=== PATIENT | male | born 1980 | race Caucasian/White ===

== ENCOUNTER 2018-10-04 10:17 | Day surgery (SDC) | payer OTHER ==
--- NOTE | 2018-10-03 21:00 | History and Physical Report ---
DATE OF ADMISSION: 10/04/2018 CHIEF COMPLAINT: Testicular mass. HISTORY OF PRESENT ILLNESS: This is a 38-year-old white male, who is admitted to the hospital for left varicocelectomy. The patient was found to have pain in the scrotal area and ultrasound showed right epididymal cyst 1 cm and left moderate varicocele. The patient had recent sperm analysis, which showed high viscosity, low sperm count, and abnormal . PAST MEDICAL/SURGICAL HISTORY: The patient has surgical history of right elbow surgery and tonsillectomy. On medical side, he has a history of lumps. MEDICATIONS: Currently, he is not taking any medications. ALLERGIES: The patient is allergic to sulfa.. SOCIAL HISTORY: He is having no children at the present time and single. FAMILY HISTORY: Father in a car accident and mother is healthy. PHYSICAL EXAMINATION: GENERAL: He is well developed and well nourished, in no acute distress. HEAD AND NECK: Negative. CHEST: Normal. Clear breathing sounds. ABDOMEN: Soft. No organomegaly. No tenderness or mass. EXTERNAL GENITALIA: Revealed circumcised phallus. Descended normal testes. Right side, a small epididymal cyst on the epididymis, nontender. On the left side, the patient has moderate varicocele. Testis is normal. EXTREMITIES: Negative. IMPRESSION: Left varicocele. PLAN: Left varicocelectomy. Issa Villalobos M.D. DR: FUAD JOB#: [id number] CC:
[~2018-10-04] VITALS: Ht 177.8 cm; Wt 74.8 kg
[2018-10-04] VITALS (10 sets, daily range): BP systolic 109–132; BP diastolic 70–83
[~2018-10-04 10:17] MED LIST: Bupivacaine 0.25% Inj 30ml INJ ONE; NKM
[2018-10-04] MEDS ORDERED: Midazolam 2mg/2ml Inj ONE (11:42)
[2018-10-04] MEDS ORDERED: Neostigmine 1mg/ml 10ml Inj ONE (11:43)
[2018-10-04] MEDS ORDERED: Glycopyrrolate 0.2mg/ml 1ml Vial ONE (11:43)
[2018-10-04] MEDS ORDERED: fentaNYL 100 mcg/2 mL IV ONE (11:43)
[2018-10-04] MEDS ORDERED: Morphine Sulfate 2mg/ml Inj(IV/IM USE ONLY) ONE (11:43)
[2018-10-04] MEDS ORDERED: Zemuron 50mg/5ml Inj IV ONE (11:44)
[2018-10-04] MEDS ORDERED: Morphine Sulfate 4mg/ml Inj (IV USE ONLY) ONE (11:45)
--- NOTE | 2018-10-04 11:53 | Pre-Procedure Note/Attestation ---
Pre-Procedure Note/Attestation Complete Prior to Procedure Planned Procedure: left Procedure Narrative: Varicocelectomy Indications for Procedure Pre-Operative Diagnosis: Left Varicocele Attestation I attest that I discussed the nature of the procedure; its benefits; risks and complications; and alternatives (and the risks and benefits of such alternatives ), prior to the procedure, with the patient (or the patient's legal service support representative). I attest that, if there was a reasonable possibility of needing a blood transfusion, the patient (or the patient's legal service support representative) was given the [facility] standardized written summary, pursuant to the William Buna Blood Safety Act ([place] Health and Safety Code # 1645, as amended). I attest that I re-evaluated the patient just prior to the surgery and that there has been no change in the patient's H&P, except as documented below: Issa Villalobos MD Oct 04, 2018 11:53
[2018-10-04] MEDS ORDERED: Propofol 200mg/20ml IV ONE (11:56)
[2018-10-04] MEDS ORDERED: LR 1000ml ONE (12:00)
[2018-10-04] MEDS ORDERED: Dexamethasone 4mg/ml vial ONE (12:00)
[2018-10-04] MEDS ORDERED: Ketorolac 30mg Inj ONE (12:00)
[2018-10-04] MEDS ORDERED: NS Irrig 1000ml ONE (12:00)
[2018-10-04] MEDS ORDERED: Sterile Water Irrig 1000ml IRRIG ONE (12:00)
[2018-10-04] MEDS ORDERED: Bupivacaine 0.5% Inj 30 ml vial INJ ONE (12:12)
--- NOTE | 2018-10-04 12:29 | Anethesia Preoperative Eval ---
Anesthesia Pre-op PMH/ROS General Date of Evaluation: Oct 04, 2018 Time of Evaluation: 11:39 Anesthesiologist: Lanny Pearson CRNA ASA Score: ASA 1 Mallampati Score Class I : Soft palate, uvula, fauces, pillars visible Class II: Soft palate, uvula, fauces visible Class III: Soft palate, base of uvula visible Class IV: Only hard plate visible Mallampati Classification: Class II Surgeon: Griselda Diagnosis: LEFT varicocele Surgical Procedure: LEFT varicoceletomy Anesthesia History: none Family History: no anesthesia problems Allergies: Coded Allergies: No Known Allergies (Unverified , 10/03/18) Medications: see eMAR Patient NPO?: Yes NPO Date: Oct 04, 2018 NPO Time: 00:00 Past Medical History Cardiovascular: Denies: HTN, CAD, MA, valve dz, arrhythmia, other Pulmonary: Denies: asthma, COPD, FABRIZIO, other Gastrointestinal/Genitourinary: Reports: other - LEFT varicocele; Denies: GERD, CRI, ESRD Neurologic/Psychiatric: Denies: dementia, CVA, depression/anxiety, TIA, other Endocrine: Denies: DM, hypothyroidism, steroids, other HEENT: Denies: cataract (L), cataract (R), glaucoma, YOMBA SHOSHONE (L), YOMBA SHOSHONE (R), other Hematology/Immune: Denies: anemia, DVT, bleeding disorder, other Musculoskeletal/Integumentary: Denies: OA, RA, DJD, DDD, edema, other PMH Narrative: as noted above PSxH Narrative: RIGHT elbow, LEFT thumb, tonsillectomy Anesthesia Pre-op Phys. Exam Physician Exam Last Vital Signs Date Time Temp Pulse Resp B/P (MAP) Pulse Ox O2 Delivery O2 Flow Rate FiO2 10/04/18 11:13 Room Air 10/04/18 11:00 97.8 57 18 109/73 99 Constitutional: NAD Neurologic: CN 2-12 intact Cardiovascular: RRR Respiratory: CTA Gastrointestinal: S/NT/ND Airway Exam Mallampati Score: Class II MO: full Neck: FROM TMD: > 3 FB ROM: full Teeth: intact Dentures: no upper, no lower Anesthesia Pre-op A/P Risk Assessment & Plan Assessment: ASA 1, ok to proceed Plan: GA Status Change Before Surgery: No Pre-Antibiotics Drug: Lanny Cornell CRNA Oct 04, 2018 12:29
[2018-10-04] MEDS ORDERED: Metoclopramide 10mg/2ml Inj IVP PRN (12:30)
[2018-10-04] MEDS ORDERED: Hydromorphone 0.5mg/0.5ml inj IVP PRN (12:30)
--- NOTE | 2018-10-04 13:54 | Immediate Post-Op Evaluation ---
Immediate Post-Op Evalulation Immediate Post-Op Evalulation Procedure: LEFT hydrocelectomy Date of Evaluation: Oct 04, 2018 Time of Evaluation: 13:31 IV Fluids: LR 1200 ml Estimated Blood Loss: 10 Blood Pressure Systolic: 125 Blood Pressure Diastolic: 75 Pulse Rate: 59 Respiratory Rate: 20 O2 Sat by Pulse Oximetry: 100 Temperature (Fahrenheit): 97.9 Pain Score (1-10): 2 Nausea: No Vomiting: No Complications none Patient Status: awake, reacts, patent, extubated Hydration Status: adequate Drug: cefazolin 2 gm IV Given Within 1 Hr of Incision: Yes Time Given: 12:10 Lanny Pearson CRNA Oct 04, 2018 13:54
--- NOTE | 2018-10-04 13:54 | Brief Operative Note ---
Immediate Post Operative Note Operative Note Pre-op Diagnosis: Left Varicocele Procedure: Left Varicoceiectomy Post-op Diagnosis: same Post-op Diagnosis: same as pre-op Surgeon: Eri Villalobos MD Anesthesia: general Specimen: yes Complications: none Condition: stable Fluids: none Estimated Blood Loss: minimal Drains: none Implant(s) used?: No Issa Villalobos MD Oct 04, 2018 13:54
--- NOTE | 2018-10-04 13:55 | 48 Hour Post Anesthesia Eval ---
Post Anesthesia Evaluation Procedure: LEFT hydrocelectomy Date of Evaluation: Oct 04, 2018 Time of Evaluation: 13:54 Blood Pressure Systolic: 135 0: 76 Pulse Rate: 60 Respiratory Rate: 16 Temperature (Fahrenheit): 97.9 O2 Sat by Pulse Oximetry: 100 Airway: patent Nausea: No Vomiting: No Pain Intensity: 0 Hydration Status: adequate Cardiopulmonary Status: stable Mental Status/LOC: patient returned to baseline Follow-up Care/Observations: per surgeon Post-Anesthesia Complications: none Follow-up care needed: N/A Lanny Pearson CRNA Oct 04, 2018 13:55
[2018-10-04] MEDS ORDERED: Meperidine 50mg/ml Inj(FOR RIGORS ONLY) IM ONE (14:00)
[2018-10-04] MEDS ORDERED: HYDROmorphone 1mg/ml Carpuject SUBQ PRN (14:00)
[2018-10-04] MEDS ORDERED: HYDROcodone/Acetamin 5/325 tab ORAL PRN (20:17)
[2018-10-04] MEDS ORDERED: D5 1/2NS 1,000 ML IV SCH (20:17)
[2018-10-04] MEDS ORDERED: Tylenol #3 tab (300mg/30mg) ORAL PRN (20:18)
--- NOTE | 2018-10-05 00:15 | Operative Note - Dictated ---
DATE OF OPERATION: 10/04/2018 PROCEDURE: Left varicocelectomy. PREOPERATIVE DIAGNOSIS: Left varicocele. POSTOPERATIVE DIAGNOSIS: Left varicocele. ANESTHESIA: General. SURGEON: Issa Villalobos M.D. BLOOD LOSS: Minimal. JUSTIFICATION: This is a 38-year-old white male with a left varicocele. PROCEDURE AND FINDINGS: The patient was placed in supine position. He was prepped and draped in usual fashion. A McBurney incision was made in the left superior to inguinal area and after cutting through the skin, subcutaneous tissue, and Alisia's fascia, the external oblique muscle was identified and split in the middle. Prior to that, the fascia was incised and opened and then the retroperitoneal area was approached and the cord was identified. Then the cord was isolated very carefully from the varicocele sac and then the varicocele was transected and tied with 0 silk. Then about 1 mL of Marcaine 0.5% plain was injected at the stump of the varicole on both sides. After careful hemostasis, the fascia was closed by 0 Vicryl in a running fashion and few interrupted stitches and subcutaneous tissue was approximated by interrupted 4-0 chromic in two layers and the skin was closed by 4-0 Prolene subcuticular. About 10 to 15 mL of Marcaine plain 0.5% was injected into the fascia and subcutaneous area. Then Steri-Strips were applied and dressing. The patient tolerated the procedure well and remained stable throughout the procedure and received 1 gram of Ancef intraoperatively. Issa Villalobos M.D. DR: Cameron JOB#: [id number] CC:
== END 2018-10-04 15:20 | disposition home or self-care (01) ==
LOC: SUR 10:17
DX: I86.1 Scrotal varices (principal); Z88.2 Allergy status to sulfonamides; N50.3 Cyst of epididymis
CPT/HCPCS: 55535; J2250; J2270; J2704; J3010; J3490; 94003; 94150; J2405; J2710

== ENCOUNTER → 2020-03-10 | Day surgery (SDC) | payer BC ==
--- NOTE | 2020-03-09 19:45 | History and Physical Report ---
DATE OF ADMISSION: 03/10/2020 Age 39, white male. CHIEF COMPLAINT: Left testicular mass. PRESENT ILLNESS: This is a 39-year-old white male admitted to the hospital for left hydrocelectomy. The patient had left varicocelectomy in this hospital about a year and a half ago for severe varicocele and abnormal sperm count. The patient afterwards developed gradual swelling of the left scrotum and was diagnosed as hydrocele, which is progressive in nature and beginning to cause pain and discomfort for him. He is admitted to the hospital today for left hydrocelectomy. PAST HISTORY: He has surgical history of right elbow surgery, left varicocelectomy, tonsillectomy, and on the medical side he has never been seriously sick. He is , no children. FAMILY HISTORY: Not remarkable. ALLERGIES: He is allergic to sulfa. MEDICATIONS: Currently, he is not taking any medication. PHYSICAL EXAMINATION: GENERAL: He is well developed, well nourished, in no acute distress. HEAD AND NECK: Negative. CHEST: Normal, clear breathing sounds. HEART: Normal rhythm and sound. ABDOMEN: Soft. No organomegaly, tenderness, or mass. EXTERNAL GENITALIA: Circumcised phallus. Descended normal testicle on the right side. On the left side, the patient has a big hydrocele transilluminated and the testicle cannot be palpated. RECTAL: Negative. EXTREMITIES: Negative. IMPRESSION: Left hydrocele. PLAN: Left hydrocelectomy. Issa Villalobos M.D. DR: TAINA JOB#: [id number] CC: INESSA
[2020-03-10] VITALS (9 sets, daily range): BP systolic 113–127; BP diastolic 72–83
[~2020-03-10] VITALS: Ht 172.7 cm; Wt 72.6 kg
[~2020-03-10] MED LIST changes: +Acetaminophen (Non formulary) 100 ML IV ONE; +Atropine Sulfate 0.4mg/ml inj IVP PRN; -Bupivacaine 0.25% Inj 30ml INJ ONE; +Bupivacaine 0.5% Inj 30 ml vial INJ ONE; +D5 1/2NS 1,000 ML IV SCH; +DiphenhydrAMINE 50mg/ml Inj IVP PRN; +HYDROcodone/Acetamin 5/325 tab ORAL PRN; +HYDROcodone/Acetamin 7.5/325 tab ORAL PRN; +HYDROmorphone 1mg/ml Carpuject SUBQ PRN; +Hydromorphone 0.5mg/0.5ml inj IVP PRN; +Ketorolac 30mg Inj IV PRN; +LORazepam Inj 2mg/ml 1ml IV PRN; +LR 1000ml 1,000 ML IVLG SCH; +LR 1000ml ONE; +Labetalol 5mg/ml 20ml vial IV PRN; +Lidocaine 1% MPF 10mg/ml 5ml ONE; +Meperidine 25mg/0.5ml Inj (FOR RIGORS ONLY) IV PRN; +Metoclopramide 10mg/2ml Inj IVP PRN; +Metoprolol Tartrate 5mg/5ml Inj ONE; +Midazolam 2mg/2ml Inj IVP PRN; +NS Irrig 1000ml IRRIG ONE; +Sodium Chloride 10ml vial INJ ONE; +Sterile Water Irrig 1000ml IRRIG ONE; +Tylenol #3 tab (300mg/30mg) ORAL PRN; +fentaNYL 100 mcg/2 mL IV ONE; +fentaNYL 100 mcg/2 mL IV PRN; +oxyCODONE HCL/Acetaminophen 5/325mg ORAL PRN
--- NOTE | 2020-03-10 12:30 | Anethesia Preoperative Eval ---
Anesthesia Pre-op PMH/ROS General Date of Evaluation: Mar 10, 2020 Time of Evaluation: 12:36 Anesthesiologist: Andrew ASA Score: ASA 1 Mallampati Score Class I : Soft palate, uvula, fauces, pillars visible Class II: Soft palate, uvula, fauces visible Class III: Soft palate, base of uvula visible Class IV: Only hard plate visible Mallampati Classification: Class II Surgeon: Griselda Diagnosis: L Hydrocele Surgical Procedure: L Hydrocelectomy Anesthesia History: none Family History: no anesthesia problems Allergies: Coded Allergies: Cultivated Oat Pollen (Verified Allergy, Intermediate, sneezing; watery eyes; runny nose, 03/10/20) Medications: see eMAR Patient NPO?: Yes Anesthesia Pre-op Phys. Exam Physician Exam Last Vital Signs Date Time Temp Pulse Resp B/P (MAP) Pulse Ox O2 Delivery O2 Flow Rate FiO2 03/10/20 12:16 98.1 71 20 116/77 96 Room Air Constitutional: NAD Neurologic: CN 2-12 intact Cardiovascular: RRR Respiratory: CTA Gastrointestinal: S/NT/ND Airway Exam Mallampati Score: Class II MO: full ROM: full Teeth: intact Anesthesia Pre-op A/P Risk Assessment & Plan Assessment: ASA 1 Plan: GA, SED, GlideScope Status Change Before Surgery: No Pre-Antibiotics Dru Gram Ancef IV Given Within 1 Hr of Incision: Yes Time Given: 13:11 Sebas Morales MD Mar 10, 2020 12:30
--- NOTE | 2020-03-10 12:35 | Pre-Procedure Note/Attestation ---
Pre-Procedure Note/Attestation Complete Prior to Procedure Planned Procedure: left Procedure Narrative: Left Hydrocelectomy Indications for Procedure Pre-Operative Diagnosis: Left Hydrocele Attestation I attest that I discussed the nature of the procedure; its benefits; risks and complications; and alternatives (and the risks and benefits of such alternatives), prior to the procedure, with the patient (or the patient's legal manufacturers representative). I attest that, if there was a reasonable possibility of needing a blood transfusion, the patient (or the patient's legal manufacturers representative) was given the [facility] standardized written summary, pursuant to the William Pilar Blood Safety Act ([place] Health and Safety Code # 1645, as amended). I attest that I re-evaluated the patient just prior to the surgery and that there has been no change in the patient's H&P, except as documented below: Issa Villalobos MD Mar 10, 2020 12:35
--- NOTE | 2020-03-10 12:45 | Immediate Post-Op Evaluation ---
Immediate Post-Op Evalulation Immediate Post-Op Evalulation Procedure: L Hydrocelectomy Date of Evaluation: Mar 10, 2020 Time of Evaluation: 14:55 IV Fluids: 500 LR Blood Products: 0 Estimated Blood Loss: 25 Urinary Output: 0 Blood Pressure Systolic: 115 Blood Pressure Diastolic: 76 Pulse Rate: 85 Respiratory Rate: 16 O2 Sat by Pulse Oximetry: 98 Temperature (Fahrenheit): 97.7 Pain Score (1-10): 2 Nausea: No Vomiting: No Complications 0 Patient Status: awake, reacts, patent, extubated, none Hydration Status: adequate Dru Gram Ancef IV Given Within 1 Hr of Incision: Yes Time Given: 13:11 Sebas Morales MD Mar 10, 2020 12:45
--- NOTE | 2020-03-10 12:46 | 48 Hour Post Anesthesia Eval ---
Post Anesthesia Evaluation Procedure: L Hydrocelectomy Date of Evaluation: Mar 10, 2020 Time of Evaluation: 16:57 Blood Pressure Systolic: 115 0: 74 Pulse Rate: 74 Respiratory Rate: 18 Temperature (Fahrenheit): 98 O2 Sat by Pulse Oximetry: 99 Airway: patent Nausea: No Vomiting: No Pain Intensity: 2 Hydration Status: adequate Cardiopulmonary Status: Stable Mental Status/LOC: patient returned to baseline Follow-up Care/Observations: 0 Post-Anesthesia Complications: 0 Follow-up care needed: ready to discharge Sebas Morales MD Mar 10, 2020 12:46
--- NOTE | 2020-03-10 14:43 | Brief Operative Note ---
Immediate Post Operative Note Operative Note Pre-op Diagnosis: Left Hydrocele Procedure: Left Hydrocelectomy Post-op Diagnosis: Same as above Post-op Diagnosis: same as pre-op Surgeon: Eri nunes Lead Sustainability Specialist: none Anesthesia: general Specimen: yes Complications: none Condition: stable Fluids: none Estimated Blood Loss: none Drains: haven Packing: none Implant(s) used?: No Issa Nunes MD Mar 10, 2020 14:43
--- NOTE | 2020-03-10 17:00 | Operative Note - Dictated ---
DATE OF OPERATION: 03/10/2020 PROCEDURE: Left hydrocelectomy. PREOPERATIVE DIAGNOSIS: Left hydrocele. POSTOPERATIVE DIAGNOSIS: Left hydrocele. ANESTHESIA: General. SURGEON: Issa Villalobos MD. ESTIMATED BLOOD LOSS: None. DRAINAGE: Small Osmani drain. JUSTIFICATION: This is a 39-year-old white male with left hydrocele for hydrocelectomy. DESCRIPTION OF PROCEDURE: Patient was placed in supine position. He was prepped and draped in usual fashion. Under general anesthesia, a longitudinal incision was made on the scrotal skin. After getting through the dartos fascia and multiple level hydrocele layers, the hydrocele was opened. About 50 mL of clear yellow fluid was drained. Then, the hydrocele sac was resected. After careful hemostasis, the edge of the hydrocele sac was closed by running and interrupted 3-0 chromic. Then about 10 mL of Marcaine plain was injected around the incisional areas and the dartos fascia. Then, the scrotum was closed in 2 layers. The first layer with running and interrupted 3-0 chromic and the skin of the scrotum with a 3-0 Vicryl. A small Avery drain was left in. Again, about 5 mL of Marcaine plain 0.5% was injected subcutaneously around the incisional area. Then, with a scrotal support and a dressing, the patient left the operating room after receiving 1 g of Ancef. Patient tolerated the procedure well. Remained stable throughout the procedure. Issa Villalobos M.D. DR: PARIS JOB#: [id number] CC:
== END | disposition home or self-care (01) ==
LOC: SUR 11:22
DX: N43.3 Hydrocele, unspecified (principal); Z88.2 Allergy status to sulfonamides
CPT/HCPCS: 55040; 94003; J0131; J0690; J1100; J2250; J2405; J2704; J3010; J3490; J7120; U0002; 94150